=== PATIENT | female | born 1980 | race Caucasian/White ===

== ENCOUNTER 2021-04-30 14:38 | Emergency (ER) | payer BC ==
[2021-04-30 15:51] LABS: Urine Blood 3+ (Negative); Urine Glucose Negative (Negative); Urine Protein 1+ (Negative); Urine Specific Gravity 1.015 (1.005-1.030)
[2021-04-30] MEDS ORDERED: MORPHINE 4 MG/ML SYR ONE (16:28)
[2021-04-30] MEDS ORDERED: NA CHLORIDE 0.9% 1,000 ML ONE (16:28)
[2021-04-30] MEDS ORDERED: ONDANSETRON 4 MG/2 ML VIAL ONE (16:28)
--- NOTE | 2021-04-30 16:31 | RAD REPORT ---
EXAM DESCRIPTION: CT - C Spine Wo Con - 04/30/2021 4:07 pm CLINICAL HISTORY: Neck pain and spinal stenosis COMPARISON: None. TECHNIQUE: Computed axial tomography of the cervical spine were obtained with sagittal and coronal r econstruction images generated and reviewed. All CT scans are performed using dose optimization technique as appropriate and may include automated exposure control or mA/KV adjustment according to patient size. FINDINGS: Small disc bulge C4-5 Anterior fusion involves C5 through C7 by plate, bone plugs and screws. The screw entering the C5 saul tebral body is broken. Disc space narrowing and osteophytes are present. Disc bulge C5-6. Thecal sac measures 9 millimeters No fracture or dislocation No high-grade stenosis seen IMPRESSION: A cervical fracture is not seen. Postsurgical changes involving C5 through C7. The screw entering the C5 vertebral body is broken. Mild central spinal stenosis C5-6 If the patient continues have symptoms to suggest spinal cord/spinal canal pathology then MRI would b e recommended.
[2021-04-30 16:48] LABS: Absolute Lymphocytes (CBC) 0.9 K/uL (0.7-4.9); Basophils % 0.2 % (0-1.3); Hematocrit 30.7 % (36.0-45.0); Lymphocytes % 5.6 % (15.3-44.8); MPV 7.6 fL (7.6-11.3); RBC Red Blood Cell Count 3.32 M/uL (3.86-4.86)
[2021-04-30 17:05] LABS: ALT/SGPT 19 U/L (12-78); AST/SGOT 14 U/L (15-37); Albumin 3.6 g/dL (3.4-5.0); Alkaline Phosphatase 57 U/L (45-117); BUN Blood Urea Nitrogen 5 mg/dL (7-18); Bicarbonate 28 mmol/L (21-32); Bilirubin Direct 0.1 mg/dL (0-0.2); Bilirubin Total 0.7 mg/dL (0.2-1.0); Glucose Level 114 mg/dL (74-106); Potassium 3.6 mmol/L (3.5-5.1); Protein, Total 6.7 g/dL (6.4-8.2); Sodium Level 134 mmol/L (136-145)
[2021-04-30 17:07] LABS: Urine Specific Gravity/Preg 1.015 (1.005-1.030)
[2021-04-30 17:09] LABS: Urine Bacteria 20-50 /HPF (<20); Urine RBC 20-50 /HPF (NONE SEEN)
[2021-04-30] MEDS ORDERED: DIAZEPAM 10 MG/2 ML INJ SYRINGE ONE (17:53)
--- NOTE | 2021-04-30 18:55 | RAD REPORT ---
EXAM DESCRIPTION: CT - Abdomen Pelvis W Contrast - 04/30/2021 6:42 pm CLINICAL HISTORY: Abdominal pain/dysuria COMPARISON: none. TECHNIQUE: Computed axial tomography of the abdomen pelvis was obtained. 100 cc Isovue-300 was admin istered intravenously. Oral contrast was not requested which limits evaluation of bowel. All CT scans are performed using dose optimization technique as appropriate and may include automated exposure control or mA/KV adjustment according to patient size. FINDINGS: The liver, spleen, pancreas, adrenal and kidneys appear unremarkable. There is no evidence of diverticulitis. Gallbladder is mildly distended Small amount of ascites. Several cystic structures within the right and left pelvis adjacent to the u terus vary in size from 1-2 centimeters IMPRESSION: Several cystic structures within the right and left pelvis adjacent to the uterus vary i n size from 1-2 centimeters may represent ovarian cysts. Pelvic ultrasound recommended. Small amount ascites Mild gallbladder distention
--- NOTE | 2021-04-30 19:09 | ER ---
Nurse's Notes [facility] Name: Faye Naqvi Age: 40 yrs Sex: Female : 1980 Arrival Date: 04/30/2021 Time: 14:41 Bed 25 Private MD: Diagnosis: UTI/ Urinary tract infection, site not specified;Strain of muscle, fascia and tendon at neck level Presentation: 04/30 14:46 Chief complaint: Patient states: Have 2 spinal fusion for spinal stenosis. On Saturday, ca1 woke up with neck pain and since then been hurting progressively. On Saturday, was having trouble urinating and swallowing. Saturday, started getting nauseous and this morning, I vomited twice. I can hardly move my neck at this time because of the pain. Coronavirus screen: Client denies travel out of the [place] in the last 14 days. nausea, vomiting. Client presents with at least one sign or symptom that may indicate coronavirus-19. Standard/surgical mask placed on the client. Provider contacted for isolation considerations. Ebola Screen: Patient negative for fever greater than or equal to 101.5 degrees Fahrenheit, and additional compatible Ebola Virus Disease symptoms Patient denies exposure to infectious person. Patient denies travel to an Ebola-affected area in the 21 days before illness onset. No symptoms or risks identified at this time. Initial Sepsis Screen: Does the patient meet any 2 criteria? No. Patient's initial sepsis screen is negative. Does the patient have a suspected source of infection? No. Patient's initial sepsis screen is negative. Risk Assessment: Do you want to hurt yourself or someone else? Patient reports no desire to harm self or others. Onset of symptoms was April 28, 2021. 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 - Social history:: Smoking status: Patient denies any tobacco usage or history of. Screenin:23 Abuse screen: Denies threats or abuse. Denies injuries from another. Nutritional zb screening: No deficits noted. Tuberculosis screening: No symptoms or risk factors identified. Fall Risk None identified. Assessment: 15:21 General: Appears in no apparent distress. Behavior is anxious. Pain: Complains of pain zb in neck Pain does not radiate. Pain currently is 8 out of 10 on a pain scale. at worst was 10 out of 10 on a pain scale. Quality of pain is described as sharp, throbbing, Pain began 2-3 days ago. Is continuous, Aggravated by increased activity, Noted to be crying, resistant to movement. Neuro: Level of Consciousness is awake, alert, obeys commands, Oriented to person, place, time. Neuro: Moves all extremities. Full function. Cardiovascular: Patient's skin is warm and dry. Respiratory: No deficits noted. Airway is patent. : Reports urinary frequency. Derm: Skin is intact, is healthy with good turgor, Skin is dry, Skin is normal, Skin temperature is warm. Musculoskeletal: Range of motion: intact in all extremities. 16:00 Reassessment: Patient appears in no apparent distress at this time. Patient and/or zb family updated on plan of care and expected duration. Pain level reassessed. Patient is alert, oriented x 3, equal unlabored respirations, skin warm/dry/pink. 17:00 Reassessment: Patient appears in no apparent distress at this time. Patient and/or zb family updated on plan of care and expected duration. Pain level reassessed. Patient is alert, oriented x 3, equal unlabored respirations, skin warm/dry/pink. pt appears to be anxious. tearing noted. 18:00 Reassessment: Patient appears in no apparent distress at this time. Patient and/or zb family updated on plan of care and expected duration. Pain level reassessed. Patient is alert, oriented x 3, equal unlabored respirations, skin warm/dry/pink. ecp at bedside discussing care with patient. 18:53 Reassessment: Patient appears in no apparent distress at this time. Patient and/or zb family updated on plan of care and expected duration. Pain level reassessed. Patient is alert, oriented x 3, equal unlabored respirations, skin warm/dry/pink. patient awaiting CT results. 19:53 Reassessment: Patient appears in no apparent distress at this time. Patient and/or zb family updated on plan of care and expected duration. Pain level reassessed. Patient is alert, oriented x 3, equal unlabored respirations, skin warm/dry/pink. patient ambulated out. d/c instructions given. patient gait even and steady. Vital Signs: 14:46 BP 105 / 75; Pulse 118; Resp 18 S; Temp 99.7(TE); Pulse Ox 98% on R/A; Weight 54.43 kg ca1 (R); Height 5 ft. 4 in. (162.56 cm) (R); Pain 9/10; 17:00 BP 108 / 68; Pulse 116; Resp 16; Pulse Ox 100% on R/A; zb 18:52 BP 109 / 78; Pulse 123; Resp 18; Pulse Ox 97% on R/A; zb 19:52 BP 105 / 74; Pulse 118; Resp 16; Pulse Ox 100% on R/A; zb 14:46 Body Mass Index 20.60 (54.43 kg, 162.56 cm) ca1 ED Course: 14:41 Patient arrived in ED. as 14:50 Triage completed. ca1 14:50 Arm band placed on right wrist. ca1 15:14 Dunia Phipps, JAE is Primary Nurse. zb 15:20 Tomas Barrios NP is PHCP. pm1 15:20 Nathan Taylor MD is Attending Physician. pm1 15:25 Patient has correct armband on for positive identification. Bed in low position. Call zb light in reach. Pulse ox on. NIBP on. 15:30 Initial lab(s) drawn, by me, sent to lab. Urine collected: clean catch specimen, zb cloudy, jersey colored, COVID swab sent to lab. Flu and/or RSV swab sent to lab. Strep swab sent to lab. Inserted saline lock: 20 gauge in left antecubital area, using aseptic technique. Blood collected. 16:07 CT C Spine In Process Unspecified. EDMS 18:42 CT Abd/Pelvis - IV Contrast Only In Process Unspecified. EDMS 19:53 No provider procedures requiring assistance completed. IV discontinued, intact, zb bleeding controlled, No redness/swelling at site. Pressure dressing applied. Administered Medications: 16:20 Drug: NS 0.9% 1000 ml Route: IV; Rate: 1000 ml; Site: left antecubital; zb 17:40 Follow up: Response: No adverse reaction; Marked relief of symptoms; RASS: Alert and zb Calm (0); IV Status: Completed infusion; IV Intake: 1000ml 16:32 Drug: morphine 4 mg {Note: RASS +0.} Route: IVP; Site: left antecubital; zb 17:39 Follow up: Response: No adverse reaction; Marked relief of symptoms; Pain is decreased; zb RASS: Alert and Calm (0) 16:32 Drug: Zofran (Ondansetron) 4 mg Route: IVP; Site: left antecubital; zb 17:39 Follow up: Response: No adverse reaction; Marked relief of symptoms zb 17:39 Drug: Valium (diazepam) 2 mg Route: IVP; Site: left antecubital; zb 19:52 Follow up: Response: No adverse reaction; Marked relief of symptoms zb Intake: 17:40 IV: 1000ml; Total: 1000ml. zb Outcome: 19:08 Discharge ordered by . pm1 19:53 Discharged to home ambulatory. zb 19:53 Condition: stable 19:53 Discharge instructions given to patient, Instructed on discharge instructions, follow up and referral plans. Demonstrated understanding of instructions, follow-up care, medications, Prescriptions given X 2. 19:53 Patient left the ED. zb Signatures: Dispatcher [employer] EDMS Ana Jarquin Patrick, NP DANCE PROFESSOR pm1 Shannon Soto RN RN ca1 Brown, Zipporah, RN RN zb Corrections: (The following items were deleted from the chart) 14:51 14:46 Immunization history: Client reports receiving the 2nd dose of the Covid vaccine, ca1 Client reports receiving the 1st dose of the Covid vaccine, Flu vaccine is up to date. ca1 14:51 14:50 Home Meds: None; ca1 ca1 14:51 14:50 PMHx: None; ca1 ca1
--- NOTE | 2021-04-30 19:09 | EDPHYS ---
Physician Documentation [facility] Name: Faye Naqvi Age: 40 yrs Sex: Female : 1980 Arrival Date: 04/30/2021 Time: 14:41 Bed 25 Private MD: ED Physician Nathan Taylor HPI: 04/30 15:45 This 40 yrs old Female presents to ER via Ambulatory with complaints of Neck pm1 Pain, <24hrs Old, Fever. 15:45 The patient or guardian complains of pain. The symptoms are located neck after sleeping pm1 in an odd position on the couch Saturday. Onset: The symptoms/episode began/occurred 3 day(s) ago. Context: The problem was sustained at home. Associated signs and symptoms: Pertinent positives: subjective fever, dysuria, Pertinent negatives: numbness, tingling, weakness. The pain does not radiate. Modifying factors: The symptoms are alleviated by nothing. the symptoms are aggravated by movement. Severity of symptoms: in the emergency department the symptoms are actually worse. The patient has not recently seen a physician. Patient noticed that she has had darkened urine for the past few days. 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 - Social history:: Smoking status: Patient denies any tobacco usage or history of. ROS: 15:45 Eyes: Negative for injury, pain, redness, and discharge, ENT: Negative for injury, pm1 pain, and discharge, Neck: Negative for injury, pain, and swelling, Cardiovascular: Negative for chest pain, palpitations, and edema, Respiratory: Negative for shortness of breath, cough, wheezing, and pleuritic chest pain. 15:45 Back: Negative for injury and pain. 15:45 MS/Extremity: Negative for injury and deformity, Skin: Negative for injury, rash, and discoloration, Neuro: Negative for headache, weakness, numbness, tingling, and seizure. 15:45 Constitutional: Positive for fever, Negative for body aches, chills. 15:45 Abdomen/GI: Positive for nausea and vomiting, Negative for abdominal pain, diarrhea, constipation. 15:45 : Positive for urinary symptoms, Negative for pelvic pain, flank pain. Exam: 15:45 Constitutional: This is a well developed, well nourished patient who is awake, alert, pm1 and in no acute distress. Head/Face: Normocephalic, atraumatic. 15:45 Back: No spinal tenderness. No costovertebral tenderness. Full range of motion. Skin: Warm, dry with normal turgor. Normal color with no rashes, no lesions, and no evidence of cellulitis. MS/ Extremity: Pulses equal, no cyanosis. Neurovascular intact. Full, normal range of motion. 15:45 Eyes: Exam is negative for acute changes, Periorbital structures: appear normal, Extraocular movements: no acute changes, Conjunctiva: no acute changes, no injection, Sclera: no acute changes, icterus, is not appreciated. 15:45 ENT: Exam is negative for acute changes, Mouth: Lips: normal, Oral mucosa: normal. 15:45 Cardiovascular: Exam negative for acute changes, Rate: tachycardic, Rhythm: regular, Pulses: no pulse deficits are appreciated, Heart sounds: normal. 15:45 Respiratory: Exam negative for acute changes, respiratory distress, shortness of breath, Breath sounds: are clear throughout. 15:45 Abdomen/GI: Inspection: abdomen appears normal, Palpation: abdomen is soft and non-tender, in all quadrants. 15:45 Neuro: Exam negative for acute changes, Orientation: is normal, Mentation: is normal, Motor: is normal, moves all fours. 15:45 Psych: Behavior/mood is anxious, Affect is animated, Oriented to person, place, time. Vital Signs: 14:46 BP 105 / 75; Pulse 118; Resp 18 S; Temp 99.7(TE); Pulse Ox 98% on R/A; Weight 54.43 kg ca1 (R); Height 5 ft. 4 in. (162.56 cm) (R); Pain 9/10; 17:00 BP 108 / 68; Pulse 116; Resp 16; Pulse Ox 100% on R/A; zb 18:52 BP 109 / 78; Pulse 123; Resp 18; Pulse Ox 97% on R/A; zb 19:52 BP 105 / 74; Pulse 118; Resp 16; Pulse Ox 100% on R/A; zb 14:46 Body Mass Index 20.60 (54.43 kg, 162.56 cm) ca1 MDM: 15:45 Patient medically screened. pm1 19:07 Data reviewed: vital signs. Data interpreted: Pulse oximetry: on room air is 97 %. pm1 Interpretation: normal. Counseling: I had a detailed discussion with the patient and/or guardian regarding: the historical points, exam findings, and any diagnostic results supporting the discharge/admit diagnosis, lab results, radiology results, the need for outpatient follow up, a family practitioner, a neurosurgeon, to return to the emergency department if symptoms worsen or persist or if there are any questions or concerns that arise at home. 04/30 15:45 Order name: Strep; Complete Time: 17:22 pm1 04/30 15:45 Order name: Flu; Complete Time: 17:22 pm 04/30 15:45 Order name: Urine Microscopic Only; Complete Time: 17:22 pm 04/30 15:45 Order name: CBC with Diff; Complete Time: 17:02 pm 04/30 15:45 Order name: BMP; Complete Time: 17:22 pm 04/30 15:45 Order name: LFT's; Complete Time: 17:22 pm 04/30 15:45 Order name: CT C Spine; Complete Time: 16:34 pm 04/30 15:51 Order name: Urine Dipstick-Ancillary; Complete Time: 15:54 [facility] 04/30 16:03 Order name: Urine --Ancillary (enter results) [facility] 04/30 16:04 Order name: Urine --Ancillary; Complete Time: 17:22 [facility] 04/30 17:09 Order name: Urine Culture [facility] 04/30 17:22 Order name: Throat Culture [facility] 04/30 18:43 Order name: SARS-COV-2 RT PCR; Complete Time: 19:06 [facility] 04/30 15:45 Order name: Urine Dipstick-Ancillary (obtain specimen); Complete Time: 15:45 pm 04/30 15:45 Order name: Urine Test (obtain specimen); Complete Time: 15:45 pm 04/30 17:59 Order name: CT Abd/Pelvis - IV Contrast Only; Complete Time: 19:06 pm1 Administered Medications: 16:20 Drug: NS 0.9% 1000 ml Route: IV; Rate: 1000 ml; Site: left antecubital; zb 17:40 Follow up: Response: No adverse reaction; Marked relief of symptoms; RASS: Alert and zb Calm (0); IV Status: Completed infusion; IV Intake: 1000ml 16:32 Drug: morphine 4 mg {Note: RASS +0.} Route: IVP; Site: left antecubital; zb 17:39 Follow up: Response: No adverse reaction; Marked relief of symptoms; Pain is decreased; zb RASS: Alert and Calm (0) 16:32 Drug: Zofran (Ondansetron) 4 mg Route: IVP; Site: left antecubital; zb 17:39 Follow up: Response: No adverse reaction; Marked relief of symptoms zb 17:39 Drug: Valium (diazepam) 2 mg Route: IVP; Site: left antecubital; zb 19:52 Follow up: Response: No adverse reaction; Marked relief of symptoms zb Disposition Summary: 04/30/21 19:08 Discharge Ordered Location: Home pm1 Problem: new pm1 Symptoms: have improved pm1 Condition: Stable pm1 Diagnosis - UTI/ Urinary tract infection, site not specified pm1 - Strain of muscle, fascia and tendon at neck level pm1 Followup: pm1 - With: Emergency Department - When: As needed - Reason: Worsening of condition Followup: pm1 - With: Private Physician - When: 2 - 3 days - Reason: Recheck today's complaints, Continuance of care, Re-evaluation by your physician Discharge Instructions: - Discharge Summary Sheet pm1 - Muscle Strain pm1 - Urinary Tract Infection, Adult pm1 Forms: - Medication Reconciliation Form pm1 - Thank You Letter pm1 - Antibiotic Education pm1 - Prescription Opioid Use pm1 Prescriptions: - Valium 2 mg Oral Tablet - take 1 tablet by ORAL route every 8 hours As needed; 12 tablet; Refills: 0, pm1 Product Selection Permitted - Bactrim DS 800-160 mg Oral Tablet - take 1 tablet by ORAL route every 12 hours for 10 days; 20 tablet; Refills: 0, pm1 Product Selection Permitted Signatures: Dispatcher [employer] EDTomas Rivas NP [employer] SUPERVISOR pm1 Shannon Soto RN RN ca1 Dunia Phipps RN RN zb Corrections: (The following items were deleted from the chart) 1451 14:46 Immunization history: Client reports receiving the 2nd dose of the Covid vaccine, ca1 Client reports receiving the 1st dose of the Covid vaccine, Flu vaccine is up to date. ca1 14:50 Home Meds: None; ca1 ca1 14 14:50 PMHx: None; ca1 ca1 17:38 15:45 CORONAVIRUS+MR.LAB.BRZ ordered. EDMS EDMS
[2021-04-30 20:15] VITALS: TEMP 99.7
[2021-04-30 20:21] VITALS: BP 105/74; O2SAT 100
== END 2021-04-30 19:53 | disposition home or self-care (01) ==
LOC: ER 14:38
DX: S16.1XXA Strain of muscle, fascia and tendon at neck level, initial encounter (principal); N39.0 Urinary tract infection, site not specified; Z20.822 Contact with and (suspected) exposure to COVID-19
CPT/HCPCS: 96361; 87070; 87088; 85025; 87086; 80048; 36415; 81025; 80076; 87081; 87804 ×2; 72125; 74177; 96375; 96374; 99284; U0003; Q9967; J3360; J7030; J2405; 81003; 81015